=== PATIENT | female | born 1950 | race African-American/Black ===

== ENCOUNTER 2019-06-04 02:08 | Inpatient (IN) | payer BC ==
[2019-06-04] MEDS ORDERED: Zolpidem Tartrate 5 MG TAB PO PRN (02:58)
[2019-06-04] MEDS ORDERED: Guaifenesin DM 100-10/5 ML UDCUP PO PRN (02:59)
[2019-06-04] MEDS ORDERED: HYDROcodone/Acetaminophen 5/325 mg Tablet PO PRN (02:59)
[2019-06-04] MEDS ORDERED: Acetaminophen 325 MG TAB PO PRN (02:59)
[2019-06-04] MEDS ORDERED: Senokot S 8.6-50 MG TAB PO PRN (02:59)
[2019-06-04] MEDS ORDERED: Bisacodyl 10 MG SUPP PR PRN (02:59)
[2019-06-04] MEDS ORDERED: Ondansetron PF 4 MG/2 ML Vial IVP PRN (02:59)
[2019-06-04 03:00] VITALS: BMI 41.5
[2019-06-04 04:23] LABS: #Basophils 0.1 thou/uL (0.0-0.2); #Lymphocytes 1.4 thou/uL (1.20-3.40); #Monocytes 0.5 thou/uL (0.11-0.59); #Neutrophils 11.3 thou/uL (1.40-6.50); %Basophils 0.7 % (0.0-1.0); %Eosinophils 0.2 % (0.0-10.0); %Lymphocytes 10.4 % (21.0-51.0); %Monocytes 3.7 % (0.0-10.0); %Neutrophils 84.9 % (42.0-75.0); Hemoglobin 10.7 g/dL (12.0-16.0); Mean Corpuscular HGB CONC 32.6 g/dL (32.0-36.0); Mean Corpuscular Hemoglobin 23.8 pg (27.0-31.0); Mean Corpuscular Volume 72.8 fL (78.0-98.0); Mean Platelet Volume 11.2 fL (7.4-10.4); Platelet Count 247 thou/uL (130-400); RBC Distribution Width 17.3 % (11.5-14.5); Red Blood Cell (RBC) Count 4.52 mill/uL (4.20-5.40); White Blood Cell (WBC) Count 13.4 thou/uL (4.8-10.8)
[2019-06-04 04:45] LABS: Anion Gap 14 mmol/L (10-20); BUN (Urea Nitrogen) 41 mg/dL (9.8-20.1); Calc. Creatinine Clearance 49 mL/min (70-130); Calcium 9.8 mg/dL (7.8-10.44); Carbon Dioxide 24 mmol/L (23-31); Chloride 104 mmol/L (98-107); Estimated GFR-MDRD 31; Glucose 196 mg/dL (80-115); Sodium 138 mmol/L (136-145)
[2019-06-04 04:50] LABS: Troponin I 0.114 ng/mL (< 0.028)
[2019-06-04 07:38] LABS: Troponin I 0.448 ng/mL (< 0.028)
[2019-06-04] MEDS ORDERED: Sodium Chloride 0.9% 1,000 ML IV SCH (08:30)
[2019-06-04] MEDS ORDERED: Aspirin 81 mg Enteric Coated Tablet PO SCH (09:00)
[2019-06-04] MEDS ORDERED: Enoxaparin Sodium 30 MG/0.3 ML SYRINGE SC SCH (09:00)
[2019-06-04] MEDS ORDERED: Amlodipine 10 MG TAB PO SCH (09:00)
--- NOTE | 2019-06-04 09:00 | HP ---
CHIEF COMPLAINT: Chest pain, recurrent, intermittent. HISTORY OF PRESENT ILLNESS: The patient is a 68-year-old female, who is admitted to the hospital with 4-day history of intermittent recurrent chest pain, which is pressure-like sensation located in the lower parts of the mid chest retrosternally which radiates to the back between the shoulder blades and to the left shoulder, which is coming and going for the last four days, especially when the patient gets up and walks around. The pain gets better when she rests. She has some nausea but she did not vomit. She has some shortness of breath on exertion. She denies any clammy skin. She never had this kind of pain before. She never had any cardiac evaluation before her primary care physician, Yanelis, from [facility], but she does not know exact last name of the provider. Surrogate decision maker is patient's daughter Silver Valencia. She does not have any chest pain at this time and for the last approximately 3 hours. She went to the bathroom this morning as she did not have the pain anymore on exertion. She denied any fever or chills. She denies any cough. PAST MEDICAL HISTORY: Positive for 1. Hypertension. 2. Hyperlipidemia. 3. GERD. MEDICATIONS: 1. Amlodipine 10 mg once a day. 2. Aspirin 81 mg once a day. 3. Fenofibrate 134 mg at bedtime. 4. Vitamin B12 of 2500 mcg daily. 5. Vitamin D3 1000 units daily. 6. Naproxen p.r.n. 7. Omeprazole 20 mg daily. 8. Dyazide 1 tablet a day. 9. Statin, she does not know the name of statin. 10. Metoprolol, again, she does not know what kind and how much. ALLERGIES: NONE. FAMILY HISTORY: Father at the age of 63, but she does not know the cause of his . Mother was 68 when she passed of renal failure. SOCIAL HISTORY: She never smoked. She does not drink. She does not use any illicit drugs. She has four living kids, one in motor vehicle accident. REVIEW OF SYSTEMS: All 14 systems were reviewed and only symptoms which are mentioned in HPI are positive and the rest is negative. PHYSICAL EXAMINATION: GENERAL: She is not in any distress during my visit. VITAL SIGNS: Blood pressure is 153/67, pulse is 67, respiratory rate is 16, O2 saturation is 99% on room air. HEENT: Her head is atraumatic and normocephalic. Eyes are PERRLA. Sclerae are nonicteric. Oral mucosa is moist. NECK: Supple. LUNGS: Clear. HEART: S1, S2 normal. No S3. No S4. No murmur. ABDOMEN: Soft. Nontender. Bowel sounds are present. No organomegaly. ABDOMEN: Obese. EXTREMITIES: No clubbing, cyanosis, or edema. NEUROLOGIC: She is alert and oriented x4. There are no any motor or sensory deficits. Cranial nerves are intact. LABORATORY DATA: CBC: White count is 13.7, hemoglobin 11.1, glucose 235. BUN to creatinine ratio is 37/1.9. Troponin, first one is within normal limits, second one is 0.114 and the third one is 0.448. BUN is 41, creatinine 1.93, glucose 196. Electrocardiogram obtained in a satellite emergency room where she went first showed sinus tachycardia with ventricular rate of 110 beats per minute with some nonspecific changes of ST-segment. Followup electrocardiogram in our hospital showed normal sinus rhythm without significant ST-segment changes or any ischemic abnormalities. Chest x-ray did not show any abnormalities. IMPRESSION: 1. Acute coronary syndrome with positive trending of troponins, which is type 2 myocardial infarction. 2. Hypertension. 3. Renal failure. At this point, it is unclear whether this is acute or acute on chronic or just chronic. We will challenge her with gentle hydration and obtain urinalysis. 4. Gastroesophageal reflux disease. 5. Hyperlipidemia. PLAN: Admission to the telemetry floor. IV normal saline at 75 mL/h. Start Lovenox 1 mg/kg with modification for her renal failure. Obtain UA and get Cardiology consult. Get echocardiogram. She received one aspirin 325 mg in the emergency room. We will continue that daily. We will start her on high dose of statin, although she thinks she is on some statin, but she does not know the name and the dose and we will keep her on DVT prophylaxis with SCDs and we will continue her home medications when the list is checked. Job ID: [id number]
[2019-06-04] MEDS: Enoxaparin Sodium 100 MG/ML SYRINGE SC SCH ×2 (09:19→19:52)
[2019-06-04] MEDS: Cyanocobalamin (Vitamin B-12) 1,000 MCG TAB PO SCH (09:20)
[2019-06-04 11:06] LABS: Troponin I 1.437 ng/mL (< 0.028)
[2019-06-04] MEDS ORDERED: Communication Order-Pharmacy FS SCH (13:00)
--- NOTE | 2019-06-04 13:19 | CON ---
DATE OF CONSULTATION: 06/04/2019 REASON FOR CONSULTATION: Unstable angina. HISTORY OF PRESENT ILLNESS: Ms. Rangel is a very pleasant 68-year-old woman, who has not been seen and evaluated by Cardiology in the past. She states for the last 4 days, she has had intermittent episodes of chest pain. They were short-lived. She then had a prolonged episode and proceeded to the emergency room. Troponin was mildly elevated. She has no previous history of underlying coronary artery disease. Only risk factor appears to be hyperlipidemia and hypertension. No previous tobacco or diabetes mellitus. HOME MEDICATIONS: Include: 1. Amlodipine. 2. Aspirin. 3. Omeprazole. 4. Dyazide. 5. Metoprolol. 6. Statin therapy. ALLERGIES: NONE. FAMILY HISTORY: Negative for CAD. REVIEW OF SYSTEMS: A 10-point review of systems is reviewed and as above, otherwise negative. PHYSICAL EXAMINATION: GENERAL: Patient is a pleasant 68-year-old woman, who is in no acute distress. The patient appears their stated age. VITAL SIGNS: Blood pressure 108/57, pulse 60, and temperature 98.1. NEUROLOGIC: The patient is alert and oriented x3 with no focal neurologic deficits. HEENT: Sclerae without icterus. Mouth has moist mucous membranes with normal pallor. NECK: No JVD. Carotid upstroke brisk. No bruits bilaterally. LUNGS: Clear to auscultation with unlabored respirations. BACK: No scoliosis or kyphosis. CARDIAC: Regular rate and rhythm with normal S1 and S2. No S3 or S4 noted. No significant rubs, murmurs, thrills, or gallops noted throughout the precordium. PMI is not displaced. There is no parasternal heave. ABDOMEN: Soft, nontender, nondistended. No peritoneal signs present. No hepatosplenomegaly. No abnormal striae. EXTREMITIES: 2+ femoral and 2+ dorsalis pedis pulses. No cyanosis, clubbing, or edema. SKIN: No gross abnormalities. PERTINENT LABORATORY DATA: Hemoglobin 10.7, hematocrit 32.9. Peak troponin 1.4. EKG shows normal sinus rhythm, normal EKG. IMPRESSION: 1. Unstable angina. 2. Hypertension. 3. Hyperlipidemia. RECOMMENDATIONS: At this point, Ms. Rangel's symptoms are certainly suggest unstable angina. The patient has had waxing and waning symptoms for the last 4 days. They then became consistent. She is not chest pain free. Aspirin, Plavix, statin therapy, and beta-rebekah therapy. We would also recommend proceeding with coronary angiography and possible PCI. I discussed the procedure in full detail with Ms. Rangel. Risks included, not limited to the following: , stroke, TX, need for emergency surgery, loss of limb, bleeding, and infection, as well as a reaction to the dye causing kidney failure and needing long-term dialysis. I also discussed the risks of PCI to include all of the above including coronary dissection and perforation in addition to acute stent thrombosis and restenosis. All questions about the procedure were answered. Given the above, the patient agreed to proceed with coronary angiography and possible PCI. She gave consent. All questions answered. Given the above, the patient agreed to proceed above procedure. Also, discussed drug coated versus nondrug coated stent placement. There were no contraindications. We will proceed if needed. We would also add hydration given her creatinine of 1.93 and a GFR of 31. Further recommendations pending the above. Job ID: [id number]
--- NOTE | 2019-06-04 14:26 | ULT ---
US Renal Bilateral STANDARD: 06/04/2019 10:37 AM CLINICAL HISTORY: Renal failure. STUDY: Renal ultrasound COMPARISON: None. FINDINGS: Right kidney: Echogenicity: Normal. Masses/cysts: None. Hydronephrosis: Mild hydronephrosis Calcifications: None. Length: 9.4 cm Left kidney: Echogenicity: Normal. Masses/cysts: None. Hydronephrosis: Moderate hydronephrosis Calcifications: None. Length: 11.6 cm Limited visualization of the urinary bladder is unremarkable. IMPRESSION: Bilateral hydronephrosis
[2019-06-04] MEDS: Sodium Chloride 0.9% 1,000 ML IV SCH ×2 (17:03→19:52)
[2019-06-04 17:23] LABS: Bilirubin Negative (Negative); Blood, Urine Negative (Negative); Clarity Clear (Clear); Glucose, Urine (Dipstick) Normal (Negative); Leukocyte 75 Leu/uL (Negative); Nitrite Negative (Negative); Protein, Urine (Dipstick) Negative (Neg-Trace); RBC/HPF 0-3 HPF (0-3); Squamous Epithelial 0-3 HPF (0-3); Urobilinogen Normal mg/dL (Less than 2); WBC/HPF 0-3 HPF (0-3); Yeast-Budding Rare HPF (None Seen)
[2019-06-04 17:49] LABS: Bacteria/HPF 2+ HPF (None Seen)
--- NOTE | 2019-06-04 17:54 | CT ---
CT ABDOMEN AND PELVIS WITHOUT CONTRAST: HISTORY: Bilateral hydronephrosis. COMPARISON: None. TECHNIQUE: Multiple contiguous axial images were obtained in a CT of the abdomen and pelvis without contrast. Sa gittal and coronal reformats were performed. FINDINGS: There is a punctate, 1 to 2 mm, nonobstructing calcification in the left kidney. There are hypodensit ies in the hilar region of the left kidney, which likely represent parapelvic cysts. These appear rou nd rather than in a branching configuration. There may also be smaller cysts in the right renal hilum . Both ureters are normal in caliber without significant distention. No calcifications are seen in ei ther ureter. The urinary bladder is unremarkable. The liver, gallbladder, adrenal glands, spleen and pancreas are unremarkable. No free air, free fluid or stranding changes are seen in the abdomen or pelvis. The reproductive organs are unremarkable. The large and small bowel are unremarkable. The appendix is normal. No abdominal or pelvic lymphadenopathy is seen. Degenerative changes are seen in the spine. The visualized inferior thorax and abdominal wall soft ti ssues are unremarkable. IMPRESSION: 1. The hypodense regions in both kidneys most likely represent parapelvic cysts rather than hydroneph rosis. The way to differentiate between the two would be a CT urogram with the excretory phase. 2. Nonobstructing left renal calcification. POS: C
[2019-06-04] MEDS: Atorvastatin Calcium 40 MG TAB PO SCH (19:52)
[2019-06-04] MEDS: Fenofibrate Nanocrystallized 145 MG TAB PO SCH (19:52)
--- NOTE | 2019-06-04 22:10 | CON ---
DATE OF CONSULTATION: 06/04/2019 REASON FOR CONSULT: Hydronephrosis. CHIEF COMPLAINT: Chest pain. HISTORY OF PRESENT ILLNESS: This is a 68-year-old female who was admitted currently for workup of chest pains. She has cardiac catheterization scheduled for tomorrow. Her creatinine on admission was noted to be elevated at 1.93. She had a renal ultrasound performed because of this earlier today, which shows bilateral hydronephrosis. Her white blood cell count is 13.4. She began to develop low-grade fever earlier today and so, a urinalysis was ordered, and Urology consultation requested. In speaking with the patient, she does not have any urinary symptoms. Denying dysuria, hematuria, difficulty voiding, urgency, frequency, incomplete emptying, flank pain, nausea, or vomiting. No history of bladder surgery. No recurrent urinary tract infections. No history of kidney stones. No hematuria. She tells me that she is not having any chest pains at this time. REVIEW OF SYSTEMS: 10-point review of systems performed, negative except as mentioned above. PAST MEDICAL HISTORY: Reflux, coronary artery disease, hyperlipidemia, and hypertension. MEDICATIONS: Reviewed. Negative for urologic medications. ALLERGIES: PENICILLIN. FAMILY HISTORY: Reviewed and noncontributory. SOCIAL HISTORY: Nonsmoker. No substance abuse. Works as a director of business systems. PHYSICAL EXAMINATION: VITAL SIGNS: T-max 100.2 at 11:33 today with mild hypotension at that time. No tachycardia. GENERAL: No acute distress, conversant. HEENT: Head; normocephalic, atraumatic. Eyes, normal movement, nonicteric. NECK: Supple. Trachea midline. LUNGS: Unlabored breathing, symmetric chest expansion. HEART: Regular rate and rhythm. ABDOMEN: Soft, nontender, nondistended. : Normal perineal exam, no suprapubic tenderness, no flank tenderness. EXTREMITIES: Without clubbing, cyanosis, or edema. NEUROLOGIC: Alert and oriented x4. PSYCHIATRIC: Normal mood and affect. SKIN: Warm and dry. LABORATORY DATA: White count 13. Creatinine 1.93. IMAGING: Renal ultrasound reviewed, showing bilateral hydronephrosis greater on the left than the right. Bladder scan performed with postvoid residual 48. IMPRESSION AND PLAN: Bilateral hydronephrosis, fever of unexplained origin for now. Urinalysis has been sent. I have ordered a CT scan to evaluate the extent of the hydronephrosis and possible etiology. I have not ordered this with contrast. Thus, she will be undergoing cardiac cath tomorrow, and the combination of the contrast today and tomorrow will be detrimental to her renal function given her creatinine of 1.93. I explained the current situation with the patient and went over what our next steps are. All of her questions were answered. Greater than 70 minutes spent in direct patient care. Job ID: [id number]
[2019-06-05 04:59] LABS: #Basophils 0.1 thou/uL (0.0-0.2); #Eosinphils 0.2 thou/uL (0.0-0.7); #Lymphocytes 3.7 thou/uL (1.20-3.40); #Monocytes 0.9 thou/uL (0.11-0.59); #Neutrophils 6.9 thou/uL (1.40-6.50); %Basophils 0.9 % (0.0-1.0); %Eosinophils 1.5 % (0.0-10.0); %Lymphocytes 31.2 % (21.0-51.0); %Monocytes 7.7 % (0.0-10.0); %Neutrophils 58.7 % (42.0-75.0); Hemoglobin 10.6 g/dL (12.0-16.0); Mean Corpuscular HGB CONC 31.7 g/dL (32.0-36.0); Mean Corpuscular Hemoglobin 23.2 pg (27.0-31.0); Mean Corpuscular Volume 73.1 fL (78.0-98.0); Platelet Count 225 thou/uL (130-400); RBC Distribution Width 17.5 % (11.5-14.5); Red Blood Cell (RBC) Count 4.55 mill/uL (4.20-5.40); White Blood Cell (WBC) Count 11.8 thou/uL (4.8-10.8)
[2019-06-05 05:18] LABS: Anion Gap 11 mmol/L (10-20); BUN (Urea Nitrogen) 33 mg/dL (9.8-20.1); Calc. Creatinine Clearance 57 mL/min (70-130); Calcium 8.9 mg/dL (7.8-10.44); Carbon Dioxide 26 mmol/L (23-31); Chloride 106 mmol/L (98-107); Estimated GFR-MDRD 37; Glucose 102 mg/dL (80-115); Potassium 3.9 mmol/L (3.5-5.1); Sodium 139 mmol/L (136-145)
[2019-06-05] MEDS: Sodium Chloride 0.9% 1,000 ML IV SCH ×3 (05:31→13:34)
[2019-06-05] MEDS ORDERED: Heparin (Artline) 1,000 ML ONE (06:23)
[2019-06-05] MEDS ORDERED: Heparin 10,000 UNITS/1 ML VIAL ONE (06:55)
[2019-06-05] MEDS ORDERED: Nitroglycerin 100MG/250ML BOT 250 ML ONE (06:55)
[2019-06-05] MEDS ORDERED: Verapamil 5 MG/2 ML VIAL ONE (06:55)
[2019-06-05] MEDS ORDERED: Nitroglycerin 0.4 MG TAB (25 Tab Bottle) SL PRN (07:45)
[2019-06-05] MEDS ORDERED: Sodium Chloride 0.9% 200 ML IV PRN (07:45)
[2019-06-05] MEDS ORDERED: Acetaminophen/Codeine 30-300mg Tablet PO PRN ×2 (07:45)
[2019-06-05] MEDS: Cyanocobalamin (Vitamin B-12) 1,000 MCG TAB PO SCH (08:24)
[2019-06-05] MEDS: Carvedilol 3.125 MG TAB PO SCH ×2 (08:24→21:05)
[2019-06-05] MEDS: Isosorbide Mononitrate (ER) 30 MG TAB PO SCH (08:28)
[2019-06-05] MEDS ORDERED: Iopamidol 370 76% 100 ML VIAL ONE (08:53)
[2019-06-05] MEDS ORDERED: Aspirin 325 MG TAB PO SCH ×2 (09:00→16:45)
[2019-06-05] MEDS ORDERED: Carvedilol 6.25 MG TAB PO SCH (09:00)
--- NOTE | 2019-06-05 09:38 | PDOC.HOSPP ---
- Subjective Encounter Date: 06/05/19 Encounter Time: 09:36 Subjective: no chest pain, etc. post cardiac cath- no report available - Objective Vital Signs & Weight: Vital Signs (12 hours) Temp Pulse Resp BP BP Pulse Ox 06/05/19 07:55 98.8 F 81 18 175/81 H 100 06/05/19 02:37 98.5 F 70 18 155/78 H 98 06/04/19 22:45 98.8 F 78 18 138/66 97 Weight Weight 250 lb I&O: 06/04/19 06/05/19 06/06/19 06:59 06:59 06:59 Intake Total 0 2810 Output Total 300 1600 Balance -300 1210 Result Diagrams: 06/05/19 04:44 06/05/19 04:44 Hospitalist ROS - Medication Medications: Active Medications Generic Name Dose Route Start Last Admin Trade Name Freq PRN Reason Stop Dose Admin Atorvastatin Calcium 40 mg 06/04/19 21:00 06/04/19 19:52 Lipitor PO 40 mg HS NEW Administration Carvedilol 3.125 mg 06/05/19 09:00 06/05/19 08:24 Coreg PO 3.125 mg BID NEW Administration Cyanocobalamin 2,500 mcg 06/04/19 09:00 06/05/19 08:24 Vitamin B-12 PO 2,500 mcg DAILY NEW Administration Fenofibrate 145 mg 06/04/19 21:00 06/04/19 19:52 Tricor PO 145 mg HS NEW Administration Levofloxacin 500 mg/ Device 100 mls @ 100 mls/hr 06/04/19 16:00 06/04/19 17: 30 IVPB 100 mls 1600 NEW Administration Sodium Chloride 1,000 mls @ 125 mls/hr 06/05/19 07:45 06/05/19 08:15 Normal Saline 0.9% IV 06/05/19 13:46 Not Given .Q8H NEW Isosorbide Mononitrate 30 mg 06/05/19 09:00 06/05/19 08:28 Imdur Er PO 30 mg DAILY NEW Administration Pantoprazole Sodium 40 mg 06/04/19 09:00 06/05/19 08:25 Protonix PO 40 mg DAILY NEW Administration Sodium Chloride 10 ml 06/05/19 09:00 06/05/19 08:23 Flush - Normal Saline IVF Not Given Q12HR NEW - Exam General Appearance: awake alert Neck: no JVD Heart: RRR, no murmur Respiratory: CTAB Gastrointestinal: soft, normal bowel sounds Extremities: no edema Hosp A/P (1) NSTEMI (non-ST elevated myocardial infarction) Code(s): I21.4 - NON-ST ELEVATION (NSTEMI) MYOCARDIAL INFARCTION Status: Acute (2) CKD stage G3b/A2, GFR 30-44 and albumin creatinine ratio 30-299 mg/g Code(s): N18.3 - CHRONIC KIDNEY DISEASE, STAGE 3 (MODERATE) Status: Chronic (3) HTN (hypertension) Code(s): I10 - ESSENTIAL (PRIMARY) HYPERTENSION Status: Chronic Qualifiers: Hypertension type: essential hypertension Qualified Code(s): I10 - Essential (primary) hypertension (4) Diastolic dysfunction Code(s): I51.89 - OTHER ILL-DEFINED HEART DISEASES Status: Acute - Plan ccont ASA, discuss with cardiology
--- NOTE | 2019-06-05 10:12 | PDOC.EVN ---
Event Note - Event Note Event Note: Pt with moderate to severe CAD Occluded ostial PDA (small)_ with collaterals noted) Recommend medical therapy ASA, statin, BB and imdur Recommend continued IVF
--- NOTE | 2019-06-05 16:20 | PRG ---
DATE OF SERVICE: 06/05/2019 CHIEF COMPLAINT: Hydronephrosis. SUBJECTIVE: No acute events overnight. The patient denies flank pain, nausea, dysuria, hematuria, or chest pains. She tells me she has been voiding normally overnight. OBJECTIVE: VITAL SIGNS: Afebrile. Vitals stable. Good urine output. Lab values reviewed. White count 11.8, creatinine 1.65. GENERAL: No acute distress, conversant. CHEST: Unlabored breathing. Symmetric chest expansion. NECK: Trachea midline, no lymphadenopathy. ABDOMEN: Soft, nontender, and nondistended. : No suprapubic or flank tenderness. SKIN: Warm and dry. NEURO: Alert and oriented x3. EXTREMITIES: Without clubbing, cyanosis, or edema. IMAGING DATA: Imaging reviewed. CT scan from yesterday afternoon shows likely bilateral parapelvic cysts. No obvious hydronephrosis. Nonobstructing left renal calculus, 1 to 2 mm in size. ASSESSMENT AND PLAN: 1. Acute kidney injury. 2. Parapelvic renal cyst. 3. Renal stone. The hydronephrosis seen on ultrasound is likely parapelvic cyst. CT urogram could definitively confirm this. However, I would prefer to avoid contrast at this point, and her creatinine has improved overnight. The patient and I discussed the findings, and I advised that for now I do not think any intervention in this regard is necessary. I will see her in my office in about 4 weeks, at which point we will check her creatinine again and decide if any further imaging is warranted. All of her questions were answered. Job ID: [id number]
--- NOTE | 2019-06-05 19:04 | EKG ---
Test Reason : Blood Pressure : / mmHG Vent. Rate : 082 BPM Atrial Rate : 082 BPM P-R Int : 174 ms QRS Dur : 088 ms QT Int : 358 ms P-R-T Axes : 056 -05 012 degrees QTc Int : 418 ms Normal sinus rhythm Normal ECG When compared with ECG of 20-MAR-2012 16:06, No significant change was found Confirmed by CJ HOPE, SGreg ([id number]) on 06/05/2019 7:03:47 PM Referred By: TRACY Confirmed By:DR. Hayes CORONA MD
[2019-06-05] MEDS: Fenofibrate Nanocrystallized 145 MG TAB PO SCH (21:04)
[2019-06-05] MEDS: Atorvastatin Calcium 40 MG TAB PO SCH (21:04)
[2019-06-06 08:06] LABS: Anion Gap 8 mmol/L (10-20); BUN (Urea Nitrogen) 25 mg/dL (9.8-20.1); Calc. Creatinine Clearance 60 mL/min (70-130); Calcium 9.6 mg/dL (7.8-10.44); Carbon Dioxide 29 mmol/L (23-31); Chloride 108 mmol/L (98-107); Estimated GFR-MDRD 40; Glucose 95 mg/dL (80-115); Potassium 4.4 mmol/L (3.5-5.1); Sodium 141 mmol/L (136-145)
[2019-06-06 08:07] VITALS: BP 136/65; TEMP 98.1
--- NOTE | 2019-06-06 08:07 | PDOC.CPN ---
- Objective Allergies/Adverse Reactions: Allergies Allergy/AdvReac Type Severity Reaction Status Date / Time Penicillins Allergy Mild Rash Verified 06/04/19 02:46 Visit Medications: Current Medications Acetaminophen (Tylenol) 650 mg PO Q4H PRN PRN Reason: Headache/Fever/Mild Pain (1-3) Acetaminophen/Codeine Phosphate (Tylenol #3) 1 tab PO Q4H PRN PRN Reason: Mild Pain (1-3) Acetaminophen/Codeine Phosphate (Tylenol #3) 2 tab PO Q4H PRN PRN Reason: Moderate Pain (4-6) Hydrocodone Bitart/Acetaminophen ([place] 5/325) 1 tab PO Q4H PRN PRN Reason: Moderate Pain (4-6) Last Admin: 06/05/19 10:35 Dose: 1 tab Aspirin (Aspirin) 325 mg PO DAILY [facility] Atorvastatin Calcium (Lipitor) 40 mg PO HS [facility] Last Admin: 06/05/19 21:04 Dose: 40 mg Bisacodyl (Dulcolax) 10 mg [place] DAILYPRN PRN PRN Reason: Constipation Carvedilol (Coreg) 3.125 mg PO BID [facility] Last Admin: 06/05/19 21:05 Dose: 3.125 mg Cyanocobalamin (Vitamin B-12) 2,500 mcg PO DAILY [facility] Last Admin: 06/05/19 08:24 Dose: 2,500 mcg Fenofibrate (Tricor) 145 mg PO HS [facility] Last Admin: 06/05/19 21:04 Dose: 145 mg Guaifenesin/Dextromethorphan (Robitussin Dm) 15 ml PO Q4H PRN PRN Reason: Cough Levofloxacin 500 mg/ Device 100 mls @ 100 mls/hr IVPB 1600 [facility] Last Admin: 06/05/19 15:33 Dose: 100 mls Isosorbide Mononitrate (Imdur Er) 30 mg PO DAILY [facility] Last Admin: 06/05/19 08:28 Dose: 30 mg Nitroglycerin (Nitrostat) 0.4 mg SL Q5MIN PRN PRN Reason: Chest Pain Ondansetron HCl (Zofran) 4 mg IVP Q6H PRN PRN Reason: Nausea/Vomiting Last Admin: 06/05/19 13:30 Dose: 4 mg Pantoprazole Sodium (Protonix) 40 mg PO DAILY [facility] Last Admin: 06/05/19 08:25 Dose: 40 mg Senna/Docusate Sodium (Senokot S) 2 tab PO BID PRN PRN Reason: Constipation Sodium Chloride (Flush - Normal Saline) 10 ml IVF Q12HR NEW Last Admin: 06/05/19 21:05 Dose: Not Given Sodium Chloride (Flush - Normal Saline) 10 ml IVF PRN PRN PRN Reason: Saline Flush Zolpidem Tartrate (Ambien) 5 mg PO HS PRN PRN Reason: Insomnia Last Admin: 06/05/19 21:04 Dose: 5 mg Vital Signs & Weight: Vital Signs Temp Pulse Resp BP Pulse Ox 06/06/19 04:00 98.5 F 73 16 135/62 97 Weight 250 lb - Physical Exam General: alert & oriented x3 HEENT: mucus membranes moist Neck: supple neck Cardiac: regular rate and rhythm, no murmur, regular rate Lungs: clear to auscultation Abdomen: soft, non-tender - Labs Result Diagrams: 06/05/19 04:44 06/05/19 04:44 Troponin/CKMB Troponin I 1.437 ng/mL (< 0.028) H* 06/04/19 10:15 - Assessment/Plan Assessment/Plan: Moderate to severe multivessel disease RI Given the findings of an occluded PDA (near ostial), RI, collaterals present and small vessel, it was decided to treat pt medically. Can proceed with attempted intervention to the PDA if pt fails medical therapy but does nto come without risk BB, imdur, statin, ASA, plavix recommended Avoid ACEI, ARB Ok to DC home with OP fu
[2019-06-06] MEDS ORDERED: Aspirin 325 MG TAB PO SCH (09:00)
[2019-06-06] MEDS: Carvedilol 3.125 MG TAB PO SCH (09:08)
[2019-06-06] MEDS: Cyanocobalamin (Vitamin B-12) 1,000 MCG TAB PO SCH (09:08)
[2019-06-06] MEDS: Isosorbide Mononitrate (ER) 30 MG TAB PO SCH (09:09)
--- NOTE | 2019-06-06 09:57 | DIS ---
DATE OF ADMISSION: 06/04/2019 DATE OF DISCHARGE: 06/06/2019 TRANSFER OF CARE NOTE: PRIMARY CARE PROVIDER: Dr. Sinha. FINAL DIAGNOSES: Non-ST elevation myocardial infarction, coronary artery disease, acute on chronic kidney disease stage 3, and hypertension. DISCHARGE MEDICATIONS: 1. New aspirin 325 a day. 2. Lipitor 40 mg a day. 3. Coreg 3.125 mg a day. 4. Imdur 30 mg a day. 5. Levaquin 500 mg p.o. daily for five days. 6. Fenofibrate 134 mg a day. 7. Omeprazole 20 mg a day. 8. Zolpidem 5 mg at bedtime. 9. Plavix 75 mg a day ALLERGIES: PENICILLINS. DIET: Heart healthy. PENDING AT THE TIME OF DISCHARGE: Nothing. CODE STATUS: Full. HOSPITAL COURSE: [facility]. The patient with a history of hypertension and dyslipidemia. She was found to have elevated troponins consistent with non- ST elevation [place]. She was taken to the cardiac environmental laboratory technician. Findings of an occluded PDA/collaterals present, small vessels. Cane Flume Feeding Machine Operator recommended medical therapy , possible attempted intervention if unsuccessful. His final diagnosis was [id number] multi-vessel disease. Dr. Donell Travis saw the patient in consultation and did a cardiac cath. The patient was also seen in consultation by Dr. Ferguson for hydronephrosis. His review suggests no hydronephrosis. Recommended followup in his office in 4 weeks. The patient's pertinent laboratory; white count 13.4, hemoglobin 10.7, and platelet count 247,000. Lytes were balanced. Initial creatinine 1.93 and final 1.56, consistent with chronic kidney disease stage 3. Troponins were 0.114, 0.448, and 1.437. She had an echocardiogram, revealed 50% to 60% EF with suggestive diastolic dysfunction. Her electrocardiogram on admission . At time of discharge, the patient was doing well. Cardiorespiratory exam was normal. Vital signs were stable. Prescriptions were written for the new medicines. She was instructed to follow up with her primary care doctor in 3 days and follow up with Dr. Ferguson and Dr. Travis in the future. Job ID: [id number] [facility]
--- NOTE | 2019-06-07 04:09 | PQF ---
BRADLEY GROVER COUNCIL C MD [id number] [facility]242 [id number] CLINICAL DOCUMENTATION CLARIFICATION FORM: POST DISCHARGE Addendum to original discharge summary date: ____ Late entry note date: __ DATE: 06/07/2019 ATTN: Lynn Howard Please exercise your independent, professional judgment in responding to the clarification form. Clinical indicators are provided on the bottom of this form for your review Please check appropriate box(s): HEART FAILURE: A. TYPE: [ ] Systolic / HFrEF [ ] Diastolic / HFpEF [ ] Combined Systolic / Diastolic B. ACUITY [ ] Acute [ ] Acute on Chronic [ ] Chronic [ x ] No CHF [ ] Other diagnosis [ ] Unable to determine In addition, please specify: Present on Admission (POA): [ ] Yes [ ] No [ ] Unable to determine For continuity of documentation, please document condition throughout progress notes and discharge summary. Thank You. CLINICAL INDICATORS - SIGNS / SYMPTOMS / LABS HP 06/04 "CC:chest pain, recurrent,intermittent" Consult 06/04 "unstable angina" DS 06/06 "Final diagnosis was moderate to severe multi vessel disease" Echocardiogram 06/04 "EF 55-60%" PN 06/05 "diastolic dysfunction" RISKS: HP 06/04-68 years old female HP 06/04-HTN HP 06/04-HLD PN 06/05-CKD 3 DS 06/06-CAD PN 06/05-NSTEMI TREATMENTS: Collected 06/04-Echocardiogram 06/04-IVF HP 06/04-Cardiology consult Consult 06/04-EKG DS 06/06-LHC MAR 06/04-Aspirin 81mg Oral MAR 06/05-Heparin 1000ml IV (This form is maintained as a part of the permanent medical record) 2014 [employer] All Rights Reserved [email or web address]
--- NOTE | 2019-06-07 04:14 | PQF ---
BRADLEY [facility]OVER [facility]NC[facility] C MD [id number] [id number] CLINICAL DOCUMENTATION CLARIFICATION FORM: POST DISCHARGE Addendum to original discharge summary date: ____ Late entry note date: __ DATE: 06/07/2019 ATTN: Lynn Howard Please exercise your independent, professional judgment in responding to the clarification form. Clinical indicators are provided on the bottom of this form for your review Please check appropriate box(s): AMI TYPE: [ ] Acute Coronary Syndrome (ACS) without Acute MD meaning Unstable Angina [x ] NSTEMI (MD type I) [ ] NSTEMI due to Demand Ischemia (AMI Type II) [ ] Demand Ischemia without MD [ ] Other known diagnosis (please specify) [ ] Other diagnosis [ ] Unable to determine CLINICAL INDICATORS - SIGNS / SYMPTOMS / LABS 06/04 "Acute coronary syndrome with positive trending of troponin, which is type 2 MD" PN 06/05 "NSTEMI" HP 06/04 "some nonspecific changes of ST segment" 06/04 "CC:chest pain, recurrent,intermittent" Consult 06/04 "unstable angina" DS 06/06 "elevated troponin consistent with non ST elevation MD" DS 06/06 "Final diagnosis was moderate to severe multi vessel disease" Labs Troponin: 06/04=0.114 0.448 1.437 RISKS: HP 06/04-68 years old female 06/04-HTN HP 06/04-HLD PN 06/05-CKD 3 DS 06/06-CAD TREATMENTS: Collected 06/04-Echocardiogram HP 06/04-IVF HP 06/04-Cardiology consult Consult 06/04-EKG DS 06/06-LHC MAR 06/04-Aspirin 81mg Oral MAR 06/05-Heparin 1000ml IV (This form is maintained as a part of the permanent medical record) 2014 [employer], [employer]. All Rights Reserved [email or web address] [phone] [place]
== END 2019-06-06 10:45 | disposition home or self-care (01) | DRG 281 ==
LOC: INTOOBSV 02:08 → OBSVTOIN 02:08 → 2SW 02:08
PROVIDERS: ADMIT Internal Medicine; ATTEND Internal Medicine
PROC: 4A023N7 Measurement of Cardiac Sampling and Pressure, Left Heart, Percutaneous Approach (ICD-10-PCS; principal; 2019-06-05)
PROC: B2111ZZ Fluoroscopy of Multiple Coronary Arteries using Low Osmolar Contrast (ICD-10-PCS; 2019-06-05)
PROC: B2151ZZ Fluoroscopy of Left Heart using Low Osmolar Contrast (ICD-10-PCS; 2019-06-05)
PROC: 4A033BC Measurement of Arterial Pressure, Coronary, Percutaneous Approach (ICD-10-PCS; 2019-06-05)
DX: I21.4 Non-ST elevation (NSTEMI) myocardial infarction (principal); N17.9 Acute kidney failure, unspecified; E78.5 Hyperlipidemia, unspecified; I24.9 Acute ischemic heart disease, unspecified; I25.110 Atherosclerotic heart disease of native coronary artery with unstable angina pectoris; K21.9 Gastro-esophageal reflux disease without esophagitis; I12.9 Hypertensive chronic kidney disease with stage 1 through stage 4 chronic kidney disease, or unspecified chronic kidney disease; N18.3 Chronic kidney disease, stage 3 (moderate); I50.89 Other heart failure; N20.0 Calculus of kidney; N28.1 Cyst of kidney, acquired; Z79.82 Long term (current) use of aspirin; Z79.899 Other long term (current) drug therapy; Z88.0 Allergy status to penicillin
CPT/HCPCS: 36415; 74176; 76770; 80048; 81001; 84484; 85025; 93005; 93010; 93306; 93458; 93798; C1769; J1644; J1650; J1956; J2405; Q9967

== ENCOUNTER 2019-11-21 14:55 | Emergency (ER) | payer BC ==
[2019-11-21 15:49] LABS: #Basophils 0.1 thou/uL (0.0-0.2); #Lymphocytes 1.7 thou/uL (1.20-3.40); #Monocytes 0.7 thou/uL (0.11-0.59); #Neutrophils 4.6 thou/uL (1.40-6.50); %Basophils 1.1 % (0.0-1.0); %Eosinophils 0.3 % (0.0-10.0); %Lymphocytes 24.4 % (21.0-51.0); %Monocytes 9.9 % (0.0-10.0); %Neutrophils 64.3 % (42.0-75.0); Hemoglobin 10.6 g/dL (12.0-16.0); Mean Corpuscular HGB CONC 32.7 g/dL (32.0-36.0); Mean Corpuscular Hemoglobin 24.3 pg (27.0-31.0); Mean Corpuscular Volume 74.2 fL (78.0-98.0); Mean Platelet Volume 7.1 fL (7.4-10.4); Platelet Count 171 thou/uL (130-400); RBC Distribution Width 17.9 % (11.5-14.5); Red Blood Cell (RBC) Count 4.37 mill/uL (4.20-5.40); White Blood Cell (WBC) Count 7.1 thou/uL (4.8-10.8)
[2019-11-21 16:11] LABS: ALT (SGPT) 20 U/L (8-55); AST (SGOT) 23 U/L (5-34); Albumin 3.8 g/dL (3.4-4.8); Alkaline Phosphatase 61 U/L (40-110); Anion Gap 12 mmol/L (10-20); BUN (Urea Nitrogen) 21 mg/dL (9.8-20.1); Bilirubin, Total 0.3 mg/dL (0.2-1.2); CK (CPK) 87 U/L (29-168); Calc. Creatinine Clearance 0 mL/min (70-130); Carbon Dioxide 24 mmol/L (23-31); Chloride 107 mmol/L (98-107); Estimated GFR-MDRD 35; Globulin 3.7 g/dL (2.4-3.5); Glucose 99 mg/dL (83-110); Lipase 60 U/L (8-78); Potassium 4.1 mmol/L (3.5-5.1); Protein, Total 7.5 g/dL (6.0-8.3); Sodium 139 mmol/L (136-145)
[2019-11-21 16:19] LABS: Anisocytosis SLIGHT = 6-15 cells (100X) (0-5/hpf); Hypochromia SLIGHT = 6-15 cells (100X) (0-5/hpf); MDiff Complete? YES; Microcytosis SLIGHT = 6-15 cells (100X) (0-5/hpf); Platelet Morphology Comment Appears Adequate; Target Cells SLIGHT = 2-5 cells (100X) (0-1/hpf)
[2019-11-21] MEDS ORDERED: Iopamidol-370 76% 500 ML 1 ML ONE (16:33)
[2019-11-21 17:26] LABS: Bilirubin Negative (Negative); Blood, Urine Negative (Negative); Clarity Clear (Clear); Glucose, Urine (Dipstick) Normal (Negative); Ketone, Urine Negative (Negative); Leukocyte 250 Leu/uL (Negative); Nitrite Negative (Negative); Protein, Urine (Dipstick) 50 mg/dL (Neg-Trace); RBC/HPF 0-3 HPF (0-3); Specific Gravity, Urine 1.023 (1.002-1.036); Urobilinogen Normal mg/dL (Less than 2); pH, Urine 5.5 (5.0-9.0)
[2019-11-21 17:27] LABS: Bacteria/HPF Rare-Few HPF (None Seen)
--- NOTE | 2019-11-21 18:38 | CT ---
CT ABDOMEN AND PELVIS PERFORMED WITH INTRAVENOUS CONTRAST ENHANCEMENT: 11/21/19 HISTORY: Fever and chills since Wednesday. Suprapubic abdominal pain. COMPARISON: 06/04/19 CT examination. Small pericardial effusion is seen. There is atelectatic changes in the lung bases. There are fatty c hanges of the liver which measures 20 cm in length. This is mainly related to somewhat elongated righ t lobe. The spleen, pancreas and gallbladder regions appear unremarkable. Small hiatal hernia is note d. Right and left adrenal glands and right and left kidneys are normal in size. A punctate nonobstructin g lower pole left renal calculus is seen. Renal pelvis regions are similar to the previous examinatio n. This is probably more related to parapelvic cyst formation as neither ureter is dilated. There is no significant periaortic or mesenteric adenopathy. CT OF PELVIS PERFORMED WITH CONTRAST: Moderate amount of stool present in the rectosigmoid colon. No inflammatory process. The fat contain ing paraumbilical hernia is seen. No adenopathy or mass. Appendix region appears unremarkable, append ix itself is somewhat difficult to definitively visualize. IMPRESSION: 1. Small hiatal hernia. 2. Fatty change of the liver which is borderline in size. 3. Apparent parapelvic cyst formation in both kidneys, more prominent on the left. I do not yoli delma this is hydronephrosis given the stability since the prior exam. Punctate nonobstructing lower po le left renal calculus is seen. 4. Moderate stool in the rectosigmoid colon. POS: [facility]
[2019-11-21] MEDS ORDERED: Cephalexin 250 MG CAP ONE (19:01)
== END 2019-11-21 19:08 | disposition home or self-care (01) ==
LOC: ERS 14:55
DX: N39.0 Urinary tract infection, site not specified (principal)
CPT/HCPCS: 36415; 74177; 80053; 81003; 81015; 82550; 83690; 85025; Q9967

== ENCOUNTER 2019-11-26 12:11 | Emergency (ER) | payer MEDICARE, OTHER ==
[2019-11-26 13:06] LABS: #Lymphocytes 1.4 thou/uL (1.20-3.40); #Monocytes 0.5 thou/uL (0.11-0.59); #Neutrophils 5.7 thou/uL (1.40-6.50); %Basophils 0.2 % (0.0-1.0); %Lymphocytes 18.1 % (21.0-51.0); %Monocytes 6.2 % (0.0-10.0); %Neutrophils 75.6 % (42.0-75.0); Hemoglobin 10.4 g/dL (12.0-16.0); Mean Corpuscular Volume 72.9 fL (78.0-98.0); Mean Platelet Volume 12.4 fL (7.4-10.4); Platelet Count 200 thou/uL (130-400); RBC Distribution Width 17.5 % (11.5-14.5); Red Blood Cell (RBC) Count 4.31 mill/uL (4.20-5.40); White Blood Cell (WBC) Count 7.6 thou/uL (4.8-10.8)
[2019-11-26 13:13] LABS: ALT (SGPT) 16 U/L (8-55); AST (SGOT) 25 U/L (5-34); Albumin 3.6 g/dL (3.4-4.8); Alkaline Phosphatase 54 U/L (40-110); Anion Gap 14 mmol/L (10-20); BUN (Urea Nitrogen) 20 mg/dL (9.8-20.1); Bilirubin, Total 0.4 mg/dL (0.2-1.2); Calc. Creatinine Clearance 0 mL/min (70-130); Carbon Dioxide 21 mmol/L (23-31); Chloride 106 mmol/L (98-107); Estimated GFR-MDRD 37; Globulin 3.9 g/dL (2.4-3.5); Glucose 104 mg/dL (83-110); Potassium 4.2 mmol/L (3.5-5.1); Protein, Total 7.5 g/dL (6.0-8.3); Sodium 137 mmol/L (136-145)
[2019-11-26 13:24] LABS: Large Platelets SLIGHT; MDiff Complete? YES; Microcytosis SLIGHT = 6-15 cells (100X) (0-5/hpf); Platelet Morphology Comment Appears Adequate; Polychromasia SLIGHT = 2-3 cells (100X) (0-2/hpf); Target Cells SLIGHT = 2-5 cells (100X) (0-1/hpf)
[2019-11-26 14:07] LABS: Bacteria/HPF None Seen HPF (None Seen); Bilirubin Negative (Negative); Blood, Urine Negative (Negative); Clarity Clear (Clear); Glucose, Urine (Dipstick) Normal (Negative); Ketone, Urine Negative (Negative); Leukocyte Negative Leu/uL (Negative); Nitrite Negative (Negative); Protein, Urine (Dipstick) 100 mg/dL (Neg-Trace); RBC/HPF 0-3 HPF (0-3); Specific Gravity, Urine 1.027 (1.002-1.036); Urobilinogen Normal mg/dL (Less than 2); WBC/HPF 0-3 HPF (0-3); pH, Urine 5.5 (5.0-9.0)
[2019-11-26] MEDS ORDERED: Acetaminophen 325 MG TAB ONE (14:42)
[2019-11-27 15:26] LABS: SARS-CoV-2 MS2 Positive; SARS-CoV-2 N Gene Positive; SARS-CoV-2 S Gene Positive; SARS-CoV-2 orf1ab Positive
== END 2019-11-26 15:40 | disposition home or self-care (01) ==
LOC: ERS 12:11
DX: U07.1 COVID-19 (principal); I12.9 Hypertensive chronic kidney disease with stage 1 through stage 4 chronic kidney disease, or unspecified chronic kidney disease; N18.9 Chronic kidney disease, unspecified; E78.5 Hyperlipidemia, unspecified; Z79.899 Other long term (current) drug therapy; Z79.82 Long term (current) use of aspirin
CPT/HCPCS: 51701; 80053; 83605; 84484; 85025; 87040; 87086; 93005; 96360; 99285; U0003; 36415; 81003; 81015; 87635

== ENCOUNTER 2020-07-23 08:33 | Outpatient (CLI) | payer MEDICARE | END 2020-07-23 08:34 | disposition home or self-care (01) | LOC: BICMAMMO 08:33 | PROVIDERS: ATTEND Family Medicine | DX: Z12.31 Encounter for screening mammogram for malignant neoplasm of breast (principal); Z91.89 Other specified personal risk factors, not elsewhere classified | CPT/HCPCS: 77063; 77067 ==

== ENCOUNTER 2023-05-07 14:17 | Outpatient (CLI) | payer OTHER | END 2023-05-07 14:18 | disposition home or self-care (01) | LOC: BICMAMMO 14:17 | PROVIDERS: ATTEND Family Medicine | DX: Z12.31 Encounter for screening mammogram for malignant neoplasm of breast (principal) | CPT/HCPCS: 77063; 77067 ==